=== PATIENT | female | born 1965 | race Caucasian/White ===

== ENCOUNTER 2019-06-05 08:18 | Emergency (ER) | payer SELFPAY ==
[2019-06-05 09:02] LABS: Absolute Lymphocytes (CBC) 1.9 K/uL (0.7-4.9); Basophils % 0.8 % (0-1.3); Hematocrit 44.3 % (36.0-45.0); Lymphocytes % 31.2 % (15.3-44.8); MPV 9.2 fL (7.6-11.3)
[2019-06-05 09:03] LABS: Protime INR 1.02
[2019-06-05] MEDS ORDERED: MECLIZINE HCL 12.5 MG TAB ONE (09:15)
[2019-06-05] MEDS ORDERED: ALBUTEROL 2.5 MG/3 ML NEB SOL ONE (09:15)
[2019-06-05] MEDS ORDERED: NA CHLORIDE 0.9% 1,000 ML ONE (09:16)
[2019-06-05 09:19] LABS: ALT/SGPT 12 U/L (12-78); AST/SGOT 17 U/L (15-37); Albumin 3.8 g/dL (3.4-5.0); Alkaline Phosphatase 75 U/L (45-117); BUN Blood Urea Nitrogen 13 mg/dL (7-18); Bicarbonate 25 mmol/L (21-32); Bilirubin Direct 0.1 mg/dL (0-0.2); Bilirubin Total 0.4 mg/dL (0.2-1.0); Glucose Level 111 mg/dL (74-106); Magnesium 2.2 mg/dL (1.8-2.4); NT PRO-BNP 147 pg/mL (<125); Potassium 3.7 mmol/L (3.5-5.1); Protein, Total 7.9 g/dL (6.4-8.2); Sodium Level 142 mmol/L (136-145); Troponin (Emerg Dept Use Only) < 0.02 ng/mL (0.0-0.045)
--- NOTE | 2019-06-05 10:28 | ER ---
Nurse's Notes [facility] Name: Arianne Reddy Age: 53 yrs Sex: Female : 1965 Arrival Date: 06/05/2019 Time: 08:20 Bed 14 Private MD: Diagnosis: Acute bronchitis, unspecified;Vertigo Presentation: 06/05 08:30 Presenting complaint: Patient states: chest feels heavy, SOB, non productive cough iw since last Friday, also has dizziness X 2 days and feels nauseous when turns head to left, also has rash in groin area. Transition of care: patient was not received from another setting of care. Onset of symptoms was May 29, 2019. Risk Assessment: Do you want to hurt yourself or someone else? Patient reports no desire to harm self or others. Initial Sepsis Screen: Does the patient meet any 2 criteria? No. Patient's initial sepsis screen is negative. Does the patient have a suspected source of infection? No. Patient's initial sepsis screen is negative. Care prior to arrival: None. 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 - Social history:: Smoking status: Patient uses tobacco products, smokes one pack cigarettes per day. - Ebola Screening: : Patient negative for fever greater than or equal to 101.5 degrees Fahrenheit, and additional compatible Ebola Virus Disease symptoms Patient denies exposure to infectious person Patient denies travel to an Ebola-affected area in the 21 days before illness onset No symptoms or risks identified at this time. Screenin:58 Abuse screen: Denies threats or abuse. Denies injuries from another. Nutritional ph screening: No deficits noted. Tuberculosis screening: No symptoms or risk factors identified. Fall Risk None identified. Assessment: 08:56 General: Appears in no apparent distress. uncomfortable, well groomed, Behavior is ph calm, cooperative, appropriate for age, Denies fever. Pain: Complains of pain in chest. Neuro: Level of Consciousness is awake, alert, obeys commands, Oriented to person, place, time, situation, Reports dizziness. Cardiovascular: Reports chest pain, fatigue, lightheadedness, Capillary refill < 3 seconds in bilateral fingers Patient's skin is warm and dry. Rhythm is regular. Respiratory: Reports cough that is non-productive, pain with cough pain with movement pain with respiration Airway is patent Respiratory effort is even, unlabored, Respiratory pattern is regular, symmetrical, Breath sounds are coarse bilaterally. GI: No signs and/or symptoms were reported involving the gastrointestinal system. :. Derm: Skin is healthy with good turgor, Skin is pink, warm \T\ dry. Rash noted that is itchy, red, on right femoral area, left femoral area and suprapubic area. Musculoskeletal: Circulation, motion, and sensation intact. Range of motion: intact in all extremities. 10:07 Reassessment: Patient appears in no apparent distress at this time. Patient and/or ph family updated on plan of care and expected duration. Pain level reassessed. Patient is alert, oriented x 3, equal unlabored respirations, skin warm/dry/pink. Pt resting quietly, awaiting CXR results, VSS. Vital Signs: 08:33 BP 128 / 88; Pulse 90; Resp 20 S; Temp 98.0(TE); Pulse Ox 98% on R/A; Weight 81.65 kg; iw Height 5 ft. 4 in. (162.56 cm); Pain 8/10; 08:59 BP 153 / 67; Pulse 87; Resp 20; Pulse Ox 98% on R/A; ph 10:07 BP 114 / 81; Pulse 88; Resp 18; Pulse Ox 99% on R/A; ph 08:33 Body Mass Index 30.90 (81.65 kg, 162.56 cm) iw ED Course: 08:20 Patient arrived in ED. mr 08:28 Andressa Jalloh, RN is Primary Nurse. ph 08:32 Triage completed. iw 08:33 Arm band placed on. iw 08:39 Fatmata Muller FNP-C is PHCP. snw 08:39 Teofilo Torres MD is Attending Physician. snw 08:50 EKG done, by ED staff, reviewed by Teofilo Torres MD. kj1 08:55 Initial lab(s) drawn, by me, sent to lab. Inserted saline lock: 22 gauge in right kj1 antecubital area, using aseptic technique. 08:59 Patient has correct armband on for positive identification. Placed in gown. Bed in low ph position. Call light in reach. Side rails up X 1. surveillance system monitor on. Pulse ox on. NIBP on. Door closed. Noise minimized. Warm blanket given. 09:25 XRAY Chest (1 view) In Process Unspecified. EDMS Administered Medications: 09:25 Drug: Meclizine 50 mg Route: PO; ph 10:08 Follow up: Response: No adverse reaction ph 09:26 Drug: Albuterol 2.5 mg Route: Inhalation; ph 09:26 Drug: NS 0.9% 1000 ml Route: IV; Rate: 1 bolus; Site: right antecubital; ph 11:06 Follow up: IV Status: Completed infusion; IV Intake: 1000ml em 09:27 Drug: Albuterol 2.5 mg Route: Inhalation; ph 10:08 Follow up: Response: No adverse reaction ph 09:27 Drug: Albuterol 2.5 mg Route: Inhalation; ph 11:02 Drug: Phenergan 6.25 mg Route: IVP; Site: right antecubital; iw 11:06 Drug: predniSONE 40 mg Route: PO; em 11:06 Drug: Pepcid 20 mg Route: PO; em Intake: 11:06 IV: 1000ml; Total: 1000ml. em Outcome: 10:28 Discharge ordered by MD. salazar 11:36 Patient left the ED. ph Signatures: Dispatcher [employer] EDMS Fatmata Muller, CLINIC OFFICE MANAGER-C CLINIC OFFICE MANAGER-Csnsilvino Lorelei Ward, Mickey, TICK ERADICATOR TICK ERADICATOR em Anai Boyle, PAZ RN iw Andressa Jalloh RN RN [facility], Katya kj1 Corrections: (The following items were deleted from the chart) 08:44 08:33 BP 128 / 88; Pulse 90bpm; Resp 20bpm; Spontaneous; Pulse Ox 98% RA; 81.65 kg; iw Height 5 ft. 4 in.; BMI: 30.9; Pain 8/10; iw
--- NOTE | 2019-06-05 10:28 | EDPHYS ---
Physician Documentation [facility] Name: Arianne Reddy Age: 53 yrs Sex: Female : 1965 Arrival Date: 06/05/2019 Time: 08:20 Bed 14 Private MD: ED Physician Teofilo Torres HPI: 06/05 09:03 This 53 yrs old Female presents to ER via Ambulatory with complaints of snw Shortness Of Breath. 09:03 The patient has shortness of breath at rest. Onset: The symptoms/episode began/occurred snw gradually, 1 week(s) ago, and became persistent. Duration: The symptoms are continuous. The patient's shortness of breath is aggravated by coughing, exertion. Associated signs and symptoms: Pertinent positives: non-productive cough, dizziness, nausea. Severity of symptoms: At their worst the symptoms were moderate severe in the emergency department the symptoms are unchanged. The patient has not experienced similar symptoms in the past. The patient has not recently seen a physician. no meds, allergic to tylox. 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 - Social history:: Smoking status: Patient uses tobacco products, smokes one pack cigarettes per day. - Ebola Screening: : Patient negative for fever greater than or equal to 101.5 degrees Fahrenheit, and additional compatible Ebola Virus Disease symptoms Patient denies exposure to infectious person Patient denies travel to an Ebola-affected area in the 21 days before illness onset No symptoms or risks identified at this time. ROS: 08:59 Constitutional: Negative for fever, chills, and weight loss, Eyes: Negative for injury, snw pain, redness, and discharge, ENT: Negative for injury, pain, and discharge, Neck: Negative for injury, pain, and swelling, Cardiovascular: Negative for chest pain, palpitations, and edema. 08:59 Abdomen/GI: Negative for abdominal pain, nausea, vomiting, diarrhea, and constipation, Back: Negative for injury and pain, : Negative for injury, bleeding, discharge, and swelling, MS/Extremity: Negative for injury and deformity, Skin: Negative for injury and discoloration, + rash to groin Neuro: Negative for headache, weakness, numbness, tingling, and seizure, + vertigo type symptoms wth position change 08:59 Respiratory: Positive for cough, shortness of breath, at rest. wheezing, expiratory. Exam: 08:55 Head/Face: Normocephalic, atraumatic. Eyes: Pupils equal round and reactive to light, snw extra-ocular motions intact. Lids and lashes normal. Conjunctiva and sclera are non-icteric and not injected. Cornea within normal limits. Periorbital areas with no swelling, redness, or edema. 08:55 Neck: Trachea midline, no thyromegaly or masses palpated, and no cervical lymphadenopathy. Supple, full range of motion without nuchal rigidity, or vertebral point tenderness. No Meningismus. Chest/axilla: Normal chest wall appearance and motion. Nontender with no deformity. No lesions are appreciated. Cardiovascular: Regular rate and rhythm with a normal S1 and S2. No gallops, murmurs, or rubs. Normal PMI, no JVD. No pulse deficits. 08:55 Abdomen/GI: Soft, non-tender, with normal bowel sounds. No distension or tympany. No guarding or rebound. No evidence of tenderness throughout. Back: No spinal tenderness. No costovertebral tenderness. Full range of motion. MS/ Extremity: Pulses equal, no cyanosis. Neurovascular intact. Full, normal range of motion. Neuro: Awake and alert, GCS 15, oriented to person, place, time, and situation. Cranial nerves II-XII grossly intact. Motor strength 5/5 in all extremities. Sensory grossly intact. Cerebellar exam normal. Normal gait. Psych: Awake, alert, with orientation to person, place and time. Behavior, mood, and affect are within normal limits. 08:55 Constitutional: The patient appears alert, awake. 08:55 ENT: TM's: are normal, Nose: is normal, Mouth: is normal, Dental exam: missing teeth, Voice: is normal. 08:55 Respiratory: the patient does not display signs of respiratory distress, Respirations: accessory muscle usage, shallow respirations, Breath sounds: wheezing: that is moderate, that is severe, is heard diffusely. 08:55 Skin: Appearance: Color: normal in color, rash a moderate rash is noted, rash can be described as macular, on the pelvis. Vital Signs: 08:33 BP 128 / 88; Pulse 90; Resp 20 S; Temp 98.0(TE); Pulse Ox 98% on R/A; Weight 81.65 kg; iw Height 5 ft. 4 in. (162.56 cm); Pain 8/10; 08:59 BP 153 / 67; Pulse 87; Resp 20; Pulse Ox 98% on R/A; ph 10:07 BP 114 / 81; Pulse 88; Resp 18; Pulse Ox 99% on R/A; ph 08:33 Body Mass Index 30.90 (81.65 kg, 162.56 cm) iw MDM: 08:49 Patient medically screened. snw 10:30 Data reviewed: vital signs, nurses notes. Data interpreted: Pulse oximetry: on room air snw is 99 %. Interpretation: normal. Counseling: I had a detailed discussion with the patient and/or guardian regarding: the historical points, exam findings, and any diagnostic results supporting the discharge/admit diagnosis, lab results, radiology results, the need for outpatient follow up, to return to the emergency department if symptoms worsen or persist or if there are any questions or concerns that arise at home, smoking cessation. Special discussion: Based on the history and exam findings, there is no indication for further emergent testing or inpatient evaluation. I discussed with the patient/guardian the need to see the primary care provider for further evaluation of the symptoms. 06/05 08:40 Order name: Basic Metabolic Panel; Complete Time: 09:23 snw 06/05 08:40 Order name: CBC with Diff; Complete Time: 09:07 snw 06/05 08:40 Order name: LFT's; Complete Time: 09:23 snw 06/05 08:40 Order name: Magnesium; Complete Time: 09:23 snw 06/05 08:40 Order name: NT PRO-BNP; Complete Time: 09:23 snw 06/05 08:40 Order name: PT-INR; Complete Time: 09:08 snw 06/05 08:40 Order name: Troponin (emerg Dept Use Only); Complete Time: 09:23 snw 06/05 08:40 Order name: XRAY Chest (1 view); Complete Time: 10:55 snw 06/05 08:40 Order name: EKG; Complete Time: 08:41 snw 06/05 08:40 Order name: Cardiac monitoring; Complete Time: 08:55 snw 06/05 08:40 Order name: EKG - Nurse/Tech; Complete Time: 08:44 snw 06/05 08:40 Order name: IV Saline Lock; Complete Time: 08:56 snw 06/05 08:40 Order name: Labs collected and sent; Complete Time: 08:56 snw 06/05 08:40 Order name: O2 Per Protocol; Complete Time: 08:56 snw 06/05 08:40 Order name: O2 Sat Monitoring; Complete Time: 08:56 snw Administered Medications: 09:25 Drug: Meclizine 50 mg Route: PO; ph 10:08 Follow up: Response: No adverse reaction ph 09:26 Drug: Albuterol 2.5 mg Route: Inhalation; ph 09:26 Drug: NS 0.9% 1000 ml Route: IV; Rate: 1 bolus; Site: right antecubital; ph 11:06 Follow up: IV Status: Completed infusion; IV Intake: 1000ml em 09:27 Drug: Albuterol 2.5 mg Route: Inhalation; ph 10:08 Follow up: Response: No adverse reaction ph 09:27 Drug: Albuterol 2.5 mg Route: Inhalation; ph 11:02 Drug: Phenergan 6.25 mg Route: IVP; Site: right antecubital; iw 11:06 Drug: predniSONE 40 mg Route: PO; em 11:06 Drug: Pepcid 20 mg Route: PO; em Disposition: 15:09 Co-signature as Attending Physician, Teofilo Torres MD I agree with the assessment and kdr plan of care. Disposition: 06/05/19 10:28 Discharged to Home. Impression: Acute bronchitis, unspecified, Vertigo. - Condition is Stable. - Discharge Instructions: Acute Bronchitis, Adult, Steps to Quit Smoking, Smoking Hazards, Vertigo, Roberta Maneuver Self-Care, Rehydration, Adult. - Prescriptions for Tessalon Perles 100 mg Oral Capsule - take 1 capsule by ORAL route every 8 hours As needed; 15 capsule. Prednisone 20 mg Oral Tablet - take 2 tablet by ORAL route once daily for 5 days; 10 tablet. Zithromax 500 mg Oral Tablet - take 1 tablet by ORAL route once daily for 5 days; 5 tablet. Albuterol Sulfate 90 mcg/actuation - inhale 1-2 puff by INHALATION route every 4-6 hours; 1 Inhaler. promethazine 25 mg Oral Tablet - take 1 tablet by ORAL route every 6 hours As needed; 20 tablet. - Medication Reconciliation Form, Thank You Letter, Antibiotic Education, Prescription Opioid Use form. - Follow up: Private Physician; When: 2 - 3 days; Reason: Recheck today's complaints, Continuance of care, Re-evaluation by your physician. Follow up: Emergency Department; When: As needed; Reason: Worsening of condition. Signatures: Dispatcher [employer] EDMS Teofilo Torres MD MD kdr Therrien, Shelly, BETHEL-C STUDIO RECEPTIONIST-Mickey Melton LVN LVN em Williams, Irene, RN RN iw Andressa Jalloh RN RN ph Corrections: (The following items were deleted from the chart) 11:16 10:28 06/05/2019 10:28 Discharged to Home. Impression: Acute bronchitis, unspecified. snw Condition is Stable. Forms are Medication Reconciliation Form, Thank You Letter, Antibiotic Education, Prescription Opioid Use. Follow up: Private Physician; When: 2 - 3 days; Reason: Recheck today's complaints, Continuance of care, Re-evaluation by your physician. Follow up: Emergency Department; When: As needed; Reason: Worsening of condition. snw 11:36 11:16 06/05/2019 10:28 Discharged to Home. Impression: Acute bronchitis, unspecified; ph Vertigo. Condition is Stable. Discharge Instructions: Acute Bronchitis, Adult, Steps to Quit Smoking, Smoking Hazards, Rehydration, Adult, Roberta Maneuver Self-Care. Prescriptions for Tessalon Perles 100 mg Oral Capsule - take 1 capsule by ORAL route every 8 hours As needed; 15 capsule, Prednisone 20 mg Oral Tablet - take 2 tablet by ORAL route once daily for 5 days; 10 tablet, Zithromax 500 mg Oral Tablet - take 1 tablet by ORAL route once daily for 5 days; 5 tablet. and Forms are Medication Reconciliation Form, Thank You Letter, Antibiotic Education, Prescription Opioid Use. Follow up: Private Physician; When: 2 - 3 days; Reason: Recheck today's complaints, Continuance of care, Re-evaluation by your physician. Follow up: Emergency Department; When: As needed; Reason: Worsening of condition. snw
--- NOTE | 2019-06-05 10:52 | RAD REPORT ---
EXAM DESCRIPTION: RAD - Chest Single View - 06/05/2019 9:24 am CLINICAL HISTORY: Congestion;Cough Chest pain. COMPARISON: No comparisons FINDINGS: Portable technique limits examination quality. The lungs are grossly clear. The heart is normal in size. No displaced fractures. IMPRESSION: No acute intrathoracic process suspected.
[2019-06-05] MEDS ORDERED: predniSONE 20 MG TAB ONE (10:53)
[2019-06-05] MEDS ORDERED: PROMETHAZINE 25 MG/ML VIAL ONE (10:53)
[2019-06-05] MEDS ORDERED: FAMOTIDINE 20 MG TAB ONE (10:54)
[2019-06-05 11:41] VITALS: TEMP 98
[2019-06-05 11:43] VITALS: BP 114/81; O2SAT 99
--- NOTE | 2019-06-06 13:05 | EKG ---
Test Date: 2019-06-05 Test Time: 08:40:02 Clinical Laboratory Technician: EDIE MEASUREMENT RESULTS: Intervals: Rate: 80 ND: 126 QRSD: 80 QT: 424 QTc: 489 [place]: P: 76 ND: 126 QRS: 82 T: 60 INTERPRETIVE STATEMENTS: Normal sinus rhythm Prolonged QT Abnormal ECG Compared to ECG 06/05/2019 08:39:33 Prolonged QT interval now present Atrial premature complex(es) no longer present Aberrant conduction of supraventricular beat(s) no longer present T-wave abnormality no longer present Possible ischemia no longer present Electronically Signed On 06-06-19 13:03:39 CDT by Norman Peters
== END 2019-06-05 11:36 | disposition home or self-care (01) ==
LOC: ER 08:18
DX: J20.9 Acute bronchitis, unspecified (principal); R42 Dizziness and giddiness; F17.210 Nicotine dependence, cigarettes, uncomplicated; Z88.5 Allergy status to narcotic agent
CPT/HCPCS: 36415; 71045; 80048; 80076; 83735; 83880; 84484; 85025; 85610; 93005; 96361; 96374; 99285; J2550; J7030; J7512; J8597

== ENCOUNTER 2021-05-02 14:27 | Emergency (ER) | payer SELFPAY ==
--- NOTE | 2021-05-02 15:39 | RAD REPORT ---
EXAM DESCRIPTION: RAD - Chest Single View - 05/02/2021 3:32 pm CLINICAL HISTORY: syncope COMPARISON: Chest Single View dated 06/05/2019 FINDINGS: Lines: None. Lungs: No evidence of edema or pneumonia. Pleural: No significant pleural effusions or pneumothorax. Cardiac: The heart size is within normal limits. Bones: No acute fractures. Other: IMPRESSION: No acute cardiopulmonary disease.
[2021-05-02 15:53] LABS: Protime INR 0.98
--- NOTE | 2021-05-02 15:55 | RAD REPORT ---
EXAM DESCRIPTION: CT - Head Brain Wo Cont - 05/02/2021 3:49 pm CLINICAL HISTORY: SYNCOPE COMPARISON: Head Brain Wo Cont dated 08/19/2016 TECHNIQUE: All CT scans are performed using dose optimization technique as appropriate and may inclu de automated exposure control or mA/KV adjustment according to patient size. FINDINGS: No intracranial hemorrhage, hydrocephalus or extra-axial fluid collection.No areas of brai n edema or evidence of midline shift. The paranasal sinuses and mastoids are clear. The calvarium is intact. IMPRESSION: No acute intracranial abnormality.
[2021-05-02 15:58] LABS: Basophils % 0.6 % (0-1.3); Hematocrit 40.9 % (36.0-45.0); Lymphocytes % 26.4 % (15.3-44.8); MPV 9.3 fL (7.6-11.3); RBC Red Blood Cell Count 4.74 M/uL (3.86-4.86)
[2021-05-02 16:08] LABS: ALT/SGPT 11 U/L (12-78); AST/SGOT 15 U/L (15-37); Albumin 3.7 g/dL (3.4-5.0); Alkaline Phosphatase 98 U/L (45-117); BUN Blood Urea Nitrogen 18 mg/dL (7-18); Bicarbonate 28 mmol/L (21-32); Bilirubin Direct < 0.1 mg/dL (0-0.2); Bilirubin Total 0.3 mg/dL (0.2-1.0); Glucose Level 111 mg/dL (74-106); Magnesium 2.1 mg/dL (1.8-2.4); NT PRO-BNP 207 pg/mL (<125); Potassium 3.6 mmol/L (3.5-5.1); Protein, Total 7.6 g/dL (6.4-8.2); Sodium Level 142 mmol/L (136-145); Troponin (Emerg Dept Use Only) < 0.02 ng/mL (0.0-0.045)
[2021-05-02] MEDS ORDERED: NA CHLORIDE 0.9% 1,000 ML ONE (16:35)
--- NOTE | 2021-05-02 17:50 | ER ---
Nurse's Notes [facility] Name: Arianne Reddy Age: 55 yrs Sex: Female : 1965 Arrival Date: 05/02/2021 Time: 14:28 Bed 27 Private MD: Diagnosis: Syncope;Dehydration Presentation: 05/02 14:45 Chief complaint: Patient states: i did a graveyard at work last night. i went home. tw2 then today i got up to go to the bathroom and the other day like 3 days ago. my vision gets blurry and i guess i pass out and wake up on the floor. then i sit and lay down and i break out in a sweat. it happened twice the other day. Coronavirus screen: At this time, the client does not indicate any symptoms associated with coronavirus-19. Ebola Screen: Patient denies travel to an Ebola-affected area in the 21 days before illness onset. 14:45 Method Of Arrival: Ambulatory tw2 14:48 Chief complaint: Patient states: i think i might have a stomach bug. but i dont have tw2 any other symptoms except the stomach pain. Coronavirus screen: Initial Sepsis Screen: Does the patient meet any 2 criteria? No. Patient's initial sepsis screen is negative. Does the patient have a suspected source of infection? No. Patient's initial sepsis screen is negative. Risk Assessment: Do you want to hurt yourself or someone else? Patient reports no desire to harm self or others. Onset of symptoms was May 02, 2021. 14:48 Acuity: DEQUAN 3 tw2 Triage Assessment: 14:50 General: Appears in no apparent distress. Behavior is calm, cooperative, appropriate tw2 for age. Pain: Complains of pain in epigastric area. Historical: - Allergies: 14:47 Tylox; tw2 - Home Meds: 14:47 None [Active]; tw2 - PMHx: 14:47 None; tw2 - PSHx: 14:47 partial hysterectomy; tw2 - Immunization history:: Adult Immunizations Client reports having NOT received the Covid vaccine. - Social history:: Smoking status: Patient reports the use of cigarette tobacco products, smokes one pack cigarettes per day. Screenin:55 Abuse screen: Denies threats or abuse. Denies injuries from another. Nutritional aj2 screening: No deficits noted. Tuberculosis screening: No symptoms or risk factors identified. Fall Risk None identified. Fall in past 12 months (25 points). Assessment: 15:55 Reassessment: Patient appears in no apparent distress at this time. Patient is alert, aj2 oriented x 3, equal unlabored respirations, skin warm/dry/pink. Patient denies pain at this time. 15:57 General: Appears. aj2 Vital Signs: 14:47 BP 147 / 98; Pulse 88; Resp 18; Temp 98.6(TE); Pulse Ox 99% on R/A; tw2 14:48 Weight 79.38 kg (R); Height 5 ft. 4 in. (162.56 cm); tw2 15:50 BP 132 / 74 Supine; Pulse 67; aj2 15:51 BP 120 / 80 Sitting; Pulse 80; aj2 15:51 BP 135 / 80 Standing; Pulse 75; aj2 15:51 BP 120 / 80; Pulse 75; Resp 18; Temp 97.7; Pulse Ox 100% ; aj2 14:48 Body Mass Index 30.04 (79.38 kg, 162.56 cm) tw2 ED Course: 14:28 Patient arrived in ED. as 14:47 Arm band placed on. tw2 14:50 Triage completed. tw2 15:03 Nick Rangel PA is PHCP. jr8 15:03 Uzair Mast MD is Attending Physician. jr8 15:09 Ko Johnston is Primary Nurse. aj2 15:32 XRAY Chest (1 view) In Process Unspecified. EDMS 15:34 CBC with Diff Sent. aj2 15:34 Basic Metabolic Panel Sent. aj2 15:34 LFT's Sent. aj2 15:34 Magnesium Sent. aj2 15:34 NT PRO-BNP Sent. aj2 15:34 PT-INR Sent. aj2 15:35 Troponin (emerg Dept Use Only) Sent. aj2 15:49 CT Head Brain wo Cont In Process Unspecified. EDMS 15:51 EKG completed in triage. Results shown to MD. aj2 15:55 No apparent distress. aj2 15:55 Patient has correct armband on for positive identification. aj2 15:55 No provider procedures requiring assistance completed. Inserted saline lock: 20 gauge. aj2 17:49 Norman Peters MD is Referral Physician. jr8 17:49 Amari Lea MD is Referral Physician. jr8 18:30 IV discontinued, intact, bleeding controlled, No redness/swelling at site. ld1 Administered Medications: 16:23 Drug: NS 0.9% 1000 ml Route: IV; Rate: 1000 ml; Site: right antecubital; aj2 Outcome: 17:49 Discharge ordered by . jr8 18:30 Discharged to home ambulatory. ld1 18:30 Condition: stable 18:30 Discharge instructions given to patient, Instructed on discharge instructions, follow up and referral plans. Demonstrated understanding of instructions, follow-up care. 18:30 Patient left the ED. ld1 Signatures: Dispatcher [employer] EDMS Yanira Barrios Josh, PA PA jr8 Shayla Goodman RN RN tw2 Mirella Keating RN RN ld1 Ko Johnston aj2 Corrections: (The following items were deleted from the chart) 14:50 14:45 Chief complaint: Patient states: i did a graveyard at work last night. i went tw2 home. then today i got up to go to the bathroom and the other day like 3 days ago. my vision gets blurry and i guess i pass out and wake up on the floor. then i sit and lay down and i break out in a sweat. it happened twice the other day. tw2
--- NOTE | 2021-05-02 17:50 | EDPHYS ---
Physician Documentation [facility] Name: Arianne Reddy Age: 55 yrs Sex: Female : 1965 Arrival Date: 05/02/2021 Time: 14:28 Bed 27 Private MD: ED Physician Uzair Mast HPI: 05/02 16:03 This 55 yrs old Female presents to ER via Ambulatory with complaints of jr8 Passed Out Prior To Arrival, Doesn't Feel Right. 16:03 This is a 55-year-old female patient that presented to the emergency room with jr8 complaints of syncope. Patient stated that she has had 2 other episodes a few days ago. Today after getting off of a graveyard shift had another episode. Stated that she will get blurred like vision and started feeling generally weak and then passed out. Patient states she wakes up shortly after without any confusion or symptoms. Denies any other preceding symptoms. Patient denies any past medical history and denies taking any current medications. Patient denies any drug use or alcohol use. Does smoke daily.. Historical: - Allergies: 14:47 Tylox; tw2 - Home Meds: 14:47 None [Active]; tw2 - PMHx: 14:47 None; tw2 - PSHx: 14:47 partial hysterectomy; tw2 - Immunization history:: Adult Immunizations Client reports having NOT received the Covid vaccine. - Social history:: Smoking status: Patient reports the use of cigarette tobacco products, smokes one pack cigarettes per day. ROS: 16:03 Eyes: Negative for injury, pain, redness, and discharge, ENT: Negative for injury, jr8 pain, and discharge, Neck: Negative for injury, pain, and swelling, Cardiovascular: Negative for chest pain, palpitations, and edema, Respiratory: Negative for shortness of breath, cough, wheezing, and pleuritic chest pain, Abdomen/GI: Negative for abdominal pain, nausea, vomiting, diarrhea, and constipation, Back: Negative for injury and pain, MS/Extremity: Negative for injury and deformity, Skin: Negative for injury, rash, and discoloration. 16:03 Neuro: Positive for syncope, visual changes. Exam: 16:03 Constitutional: This is a well developed, well nourished patient who is awake, alert, jr8 and in no acute distress. Head/Face: Normocephalic, atraumatic. Eyes: Pupils equal round and reactive to light, extra-ocular motions intact. Lids and lashes normal. Conjunctiva and sclera are non-icteric and not injected. Cornea within normal limits. Periorbital areas with no swelling, redness, or edema. ENT: Nares patent. No nasal discharge, no septal abnormalities noted. Tympanic membranes are normal and external auditory canals are clear. Oropharynx with no redness, swelling, or masses, exudates, or evidence of obstruction, uvula midline. Mucous membranes moist. Neck: Trachea midline, no thyromegaly or masses palpated, and no cervical lymphadenopathy. Supple, full range of motion without nuchal rigidity, or vertebral point tenderness. No Meningismus. Chest/axilla: Normal chest wall appearance and motion. Nontender with no deformity. No lesions are appreciated. Cardiovascular: Regular rate and rhythm with a normal S1 and S2. No gallops, murmurs, or rubs. Normal PMI, no JVD. No pulse deficits. Respiratory: Lungs have equal breath sounds bilaterally, clear to auscultation and percussion. No rales, rhonchi or wheezes noted. No increased work of breathing, no retractions or nasal flaring. Abdomen/GI: Soft, non-tender, with normal bowel sounds. No distension or tympany. No guarding or rebound. No evidence of tenderness throughout. Back: No spinal tenderness. No costovertebral tenderness. Full range of motion. Skin: Warm, dry with normal turgor. Normal color with no rashes, no lesions, and no evidence of cellulitis. MS/ Extremity: Pulses equal, no cyanosis. Neurovascular intact. Full, normal range of motion. Neuro: Awake and alert, GCS 15, oriented to person, place, time, and situation. Cranial nerves II-XII grossly intact. Motor strength 5/5 in all extremities. Sensory grossly intact. Cerebellar exam normal. 18:05 ECG was reviewed by the Attending Physician. jr8 Vital Signs: 14:47 BP 147 / 98; Pulse 88; Resp 18; Temp 98.6(TE); Pulse Ox 99% on R/A; tw2 14:48 Weight 79.38 kg (R); Height 5 ft. 4 in. (162.56 cm); tw2 15:50 BP 132 / 74 Supine; Pulse 67; aj2 15:51 BP 120 / 80 Sitting; Pulse 80; aj2 15:51 BP 135 / 80 Standing; Pulse 75; aj2 15:51 BP 120 / 80; Pulse 75; Resp 18; Temp 97.7; Pulse Ox 100% ; aj2 14:48 Body Mass Index 30.04 (79.38 kg, 162.56 cm) tw2 MDM: 15:03 Patient medically screened. [facility] 17:48 Data reviewed: vital signs, nurses notes, lab test result(s), EKG, radiologic studies, jr8 CT scan, plain films. Data interpreted: Pulse oximetry: on room air is 100 %. Interpretation: normal. 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 ED course: Patient had mild orthostatic changes and was given fluids. Otherwise has been hemodynamically stable. No worsening of symptoms and feels that everything is resolved at this time. No other acute findings on blood work or imaging at this time. Discussed with patient that she did have a prolonged QT but was not over 500. Mild concern that that may be a potential cause and needs to be further ruled out with cardiology but overall unlikely. Recommended follow-up with cardiology and neurology. If it were to happen again to come back for further evaluation. Patient with plan at this time.. 05/02 15:05 Order name: Basic Metabolic Panel; Complete Time: 16:10 05/02 15:05 Order name: CBC with Diff; Complete Time: 16:02 05/02 15:05 Order name: LFT's; Complete Time: 16:10 05/02 15:05 Order name: Magnesium; Complete Time: 16:10 05/02 15:05 Order name: NT PRO-BNP; Complete Time: 16:10 05/02 15:05 Order name: PT-INR; Complete Time: 16:02 05/02 15:05 Order name: Troponin (emerg Dept Use Only); Complete Time: 16:10 05/02 15:05 Order name: XRAY Chest (1 view); Complete Time: 15:42 05/02 15:05 Order name: EKG; Complete Time: 15:05 05/02 15:05 Order name: Cardiac monitoring; Complete Time: 15:34 05/02 15:05 Order name: EKG - Nurse/Tech; Complete Time: 15:34 05/02 15:05 Order name: IV Saline Lock; Complete Time: 15:34 05/02 15:25 Order name: CT Head Brain wo Cont; Complete Time: 16:02 05/02 15:05 Order name: Labs collected and sent; Complete Time: 15:35 05/02 15:05 Order name: O2 Per Protocol; Complete Time: 15:34 05/02 15:05 Order name: O2 Sat Monitoring; Complete Time: 16:07 05/02 15:05 Order name: Orthostatics; Complete Time: 16:07 EC:05 Rate is 73 beats/min. Rhythm is regular, Sinus Rhythm. QRS [place] is Normal. AK interval jr8 is normal. QRS interval is normal. QT interval is prolonged at 495 msec. No Q waves. T waves are Normal. No ST changes noted. Clinical impression: No evidence of ischemia. Interpreted by me. Reviewed by me. Administered Medications: 16:23 Drug: NS 0.9% 1000 ml Route: IV; Rate: 1000 ml; Site: right antecubital; aj2 Disposition: 05/03 07:05 Co-signature as Attending Physician, Uzair Mast MD I agree with the assessment and sp3 plan of care. Disposition Summary: 05/02/21 17:49 Discharge Ordered Location: Home jr8 Problem: new jr8 Symptoms: are resolved jr8 Condition: Stable jr8 Diagnosis - Syncope jr8 - Dehydration jr8 Followup: jr8 - With: Norman Peters MD - When: 2 - 3 days - Reason: Recheck today's complaints, Continuance of care, Re-evaluation by your physician Followup: jr8 - With: Amari Lea MD - When: 2 - 3 days - Reason: Recheck today's complaints, Continuance of care, Re-evaluation by your physician Discharge Instructions: - Discharge Summary Sheet jr8 - Dehydration, Adult jr8 - Syncope jr8 Forms: - Medication Reconciliation Form jr8 - Thank You Letter jr8 - Antibiotic Education jr8 - Prescription Opioid Use jr8 Signatures: Dispatcher [employer] EDMS Nick Rangel PA PA jr8 Shayla Goodman RN RN tw2 Uzair Mast MD MD sp3 Ko Johnston aj2 Corrections: (The following items were deleted from the chart) 05/02 18:06 17:48 ED course: Patient had mild orthostatic changes and was given fluids. Otherwise jr8 has been hemodynamically stable. No worsening of symptoms and feels that everything is resolved at this time. No other acute findings on blood work or imaging at this time. Recommended follow-up with cardiology and neurology. If it were to happen again to come back for further evaluation. Patient with plan at this time.. jr8
[2021-05-02 18:41] VITALS: BP 120/80; TEMP 97.7; O2SAT 100
== END 2021-05-02 18:30 | disposition home or self-care (01) ==
LOC: ER 14:27
DX: R55 Syncope and collapse (principal); E86.0 Dehydration; F17.210 Nicotine dependence, cigarettes, uncomplicated
CPT/HCPCS: 36415; 70450; 71045; 80048; 80076; 83735; 83880; 84484; 85025; 85610; 93005; 99284; J7030

== ENCOUNTER 2023-04-05 20:36 | Emergency (ER) | payer OTHER, SELFPAY ==
--- OUTSIDE RECORDS SUMMARY | 2023-04-05 20:39 | XMS REPORT | Continuity of Care Document ---
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 Allergies, Adverse Reactions, Alerts Allergy Allergy Status Severity Reaction(s) Onset Inactive Treating Comm ents Source Name Type Date Date Clinician Tylox Propensi Active Nausea and Pat rodrigues ty to Vomiting 08 Seyanni adverse 00:00: - reaction 00 Externa s l Social History Social Habit Start Date Stop Date Quantity Comments Source Gender identity Tamela liao - External Sexual orientation Tamela Talamantes - External History of tobacco Cigarette Smoker Tamela Talamantes use - External Alcohol intake 2023-02-27 2023-02-27 Lifetime Tamela john 00:00:00 00:00:00 non-drinker - External (finding) History of Social 2023-01-30 2023-01-30 Tamela Talamantes function 00:00:00 00:00:00 - External Sex Ass[birth year] At [birth year] Tamela liao 00:00:00 00:00:00 - External Smoking Status Start Date Stop Date Source Ex-smoker 2023-01-30 00:00:00 2023-01-30 00:00:00 Tamela medel - External Medications Ordered Filled Start Stop Current Ordering Indication Dosage Frequency Signature Comments Components Source Medication Medication Date Date Medication? Clinician (SIG) Name Name Lisinopril Yes [id number] 20mg Take 1 K elsey 20 MG oral 7-06 tablet (20 Sey bold Tablet 00:00: mg total) - 00 by mouth Externa daily l Celecoxib Yes [id number] 200mg Take 1 K elsey (CeleBREX) 7-06 capsule Seybol d 200 MG oral 00:00: (200 mg - Capsule 00 total) by Externa mouth 2 l times daily Acetaminoph Yes [id number] 1{tbl} Q4H Take 1 Tamela en-Codeine 7-06 tablet by Seyb old 300-30 MG 00:00: mouth - oral Tablet 00 every 4 Exter na hours as l needed for pain Gabapentin Yes [id number] Take 1 Tamela 300 MG oral 6-30 capsule Seybo ld Capsule 00:00: (300 mg - 00 total) by Externa mouth l after breakfast AND 2 capsules (600 mg total) after lunch AND 2 capsules (600 mg total) at bedtime. Baclofen 10 Yes [id number] 10mg Take 1 Tamela MG oral 6-30 tablet (10 Seybol d Tablet 00:00: mg total) - 00 by mouth Externa at bedtime l as needed No driving. No alcohol. No operating machinery. Gabapentin Yes [id number] Take 1 Tamela 300 MG oral 6-30 capsule Seybo ld Capsule 00:00: (300 mg - 00 total) by Externa mouth l after breakfast AND 2 capsules (600 mg total) after lunch AND 2 capsules (600 mg total) at bedtime. Baclofen 10 Yes [id number] 10mg Take 1 Tamela MG oral 6-30 tablet (10 Seybol d Tablet 00:00: mg total) - 00 by mouth Externa at bedtime l as needed No driving. No alcohol. No operating machinery. Gabapentin Yes [id number] 100mg Take 1 Tamela 100 MG oral 6-27 capsule Seybo ld Capsule 00:00: (100 mg - 00 total) by Externa mouth 3 l times daily Gabapentin Yes [id number] 100mg Take 1 Tamela 100 MG oral 6-27 capsule Seybo ld Capsule 00:00: (100 mg - 00 total) by Externa mouth 3 l times daily Gabapentin 3-0 Yes [id number] 100mg Take 1 Tamela 100 MG oral 6-08 capsule Seybo ld Capsule 00:00: (100 mg - 00 total) by Externa mouth 3 l times daily methylPREDN 3-0 Yes [id number] 1{michel} Take 1 michel Tamela ISolone 4 6-08 by mouth Seybol d MG oral 00:00: See Admin - Tablet 00 Instructio Externa Therapy ns Use as l Pack directed Lisinopril 3-0 Yes [id number] 10mg Take 1 K elsey 10 MG oral 6-08 tablet (10 Sey bold Tablet 00:00: mg total) - 00 by mouth Externa daily l methylPREDN 3-0 Yes [id number] 1{michel} Take 1 michel Tamela ISolone 4 6-08 by mouth Seybol d MG oral 00:00: See Admin - Tablet 00 Instructio Externa Therapy ns Use as l Pack directed Lisinopril 3-0 Yes [id number] 10mg Take 1 K elsey 10 MG oral 6-08 tablet (10 Sey bold Tablet 00:00: mg total) - 00 by mouth Externa daily l methylPREDN 2023-0 2023- No [id number] 1{michel} Take 1 michel Tamela ISolone 4 6-08 07-06 by mouth Seybo ld MG oral 00:00: 00:00 See Admin - Tablet 00 :00 Instructio Externa Therapy ns Use as l Pack directed Lisinopril 2023-0 2023- No [id number] 10mg Take 1 Tamela 10 MG oral 6-08 07-06 tablet (10 Se ybold Tablet 00:00: 00:00 mg total) - 00 :00 by mouth Externa daily l Vital Signs Vital Name Observation Time Observation Value Comments Source Systolic blood 2023-02-27 19:41:00 166 mm[Hg] Tamela Seybold - pressure External Diastolic blood 2023-02-27 19:41:00 84 mm[Hg] Jared y Seybold - pressure External Heart rate 2023-02-27 19:41:00 90 /min Tamela S eybold - External Body temperature 2023-02-27 19:41:00 35.56 Treva Pat ey Seybold - External Respiratory rate 2023-02-27 19:41:00 15 /min Pat ey Seybold - External Body height 2023-02-27 19:41:00 162.6 cm Tamela S eybold - External Body weight 2023-02-27 19:41:00 85.73 kg Tamela S eybold - External BMI 2023-02-27 19:41:00 32.44 kg/m2 Tamela S eybold - External Body height 2023-02-21 13:36:00 162.6 cm Tamela S eybold - External Body weight 2023-02-21 13:36:00 82.101 kg Tamela S eybold - External BMI 2023-02-21 13:36:00 31.07 kg/m2 Tamela S eybold - External Systolic blood 2023-01-30 13:43:00 190 mm[Hg] Tamela Seybold - pressure External Diastolic blood 2023-01-30 13:43:00 106 mm[Hg] Russse y Seybold - pressure External Heart rate 2023-01-30 13:43:00 102 /min Tamela S eybold - External Body temperature 2023-01-30 13:43:00 36.67 Treva Pat ey Seybold - External Respiratory rate 2023-01-30 13:43:00 15 /min Pat ey Seybold - External Body height 2023-01-30 13:43:00 162.6 cm Tamela Robertson eybold - External Body weight 2023-01-30 13:43:00 84.369 kg Tamela Robertson eybold - External BMI 2023-01-30 13:43:00 31.93 kg/m2 Tamela Robertson eybold - External Procedures This patient has no known procedures. Encounters Start End Encounter Admission Attending Care Care Encounter Source Date/Time Date/Time Type Type Clinicians Facility Department ID 2023-04-04 2023-04-04 Outpatient CODY KHAN [id number] Tamela 11:30:00 11:30:00 Seybol d 2023-03-27 2023-03-27 Outpatient TAMELA ELIZABETH [id number] Tamela 13:00:00 13:00:00 SHELIA Mckenzieol shaneka 2023-03-16 2023-03-16 Outpatient TAMELA ELIZABETH [id number] Tamela 00:00:00 00:00:00 SHELIA Seybol d 2023-03-05 2023-03-05 Outpatient TAMELA ELIZABETH [id number] Tamela 00:00:00 00:00:00 SHELIA Seybol d 2023-02-27 2023-02-27 Outpatient TAMELA ELIZABETH [id number] Tamela 15:00:00 15:00:00 SHELIA Seybol d 2023-02-27 2023-02-27 Outpatient TAMELA RAPP [id number] Tamela 00:00:00 00:00:00 Seybol d 2023-02-21 2023-02-21 Outpatient DARREL KHANE TAMELA RAPP [id number] Tamela 08:45:00 08:45:00 Seybol d 2023-02-21 2023-02-21 Outpatient TAMELA RAPP [id number] Tamela 00:00:00 00:00:00 Seybol d 2023-02-17 2023-02-17 Outpatient TAMELA VIVAR [id number] Tamela 00:00:00 00:00:00 KRISHAN Seybol d 2023-02-17 2023-02-17 Outpatient TAMELA ELIZABETH [id number] Tamela 00:00:00 00:00:00 SHELIA Seybol d 2023-02-05 2023-02-05 Outpatient TAMELA ELIZABETH [id number] Tamela 00:00:00 00:00:00 SHELIA Seybol d 2023-01-30 2023-01-30 Outpatient TAMELA ELIZABETH [id number] Tamela 09:00:00 09:00:00 SHELIA Seybol d Results This patient has no known results.
--- NOTE | 2023-04-05 21:16 | RAD REPORT ---
EXAM DESCRIPTION: CT - Head Brain Wo Cont - 04/05/2023 8:59 pm CLINICAL HISTORY: STROKE ALERT COMPARISON: Head Brain Wo Cont dated 05/02/2021; Head Brain Wo Cont dated 08/19/2016 TECHNIQUE: Noncontrast head CT images were obtained without IV contrast. Multiplanar reformats were generated and reviewed. All CT scans are performed using dose optimization technique as appropriate and may include automated exposure control or mA/KV adjustment according to patient size. FINDINGS: No intracranial hemorrhage, mass, or edema. Midline structures are unremarkable. Normal ventricular caliber for age. Estrella-white matter differentiation is preserved, without evidence of acute infarct. No abnormal extra- axial fluid collections. Mastoid air cells patchy opacification. Visualized portions of the paranasal sinuses are clear. No acute bony findings. IMPRESSION: No evidence of an acute intracranial process. Patchy opacification of the mastoid air cells.
[2023-04-05 21:25] LABS: Hematocrit 37.9 % (36.0-45.0); Lymphocytes % 36.1 % (15.3-44.8); MCV 84.1 fL (80-100); MPV 8.3 fL (7.6-11.3); Platelets 300 thou/uL (152-406); RBC Red Blood Cell Count 4.51 M/uL (3.86-4.86)
[2023-04-05 21:27] LABS: Protime INR 1.06
[2023-04-05 21:38] LABS: Potassium 3.5 mEq/L (3.5-5.1); Troponin High Sensitivity 5.4 pg/mL (<58.9)
--- NOTE | 2023-04-05 22:00 | RAD REPORT ---
EXAM DESCRIPTION: RADChest Single View04/05/2023 9:40 pm CLINICAL HISTORY: CHEST PAIN COMPARISON: Chest Single View dated 05/02/2021; Chest Single View dated 06/05/2019 TECHNIQUE: Portable AP view of the chest. FINDINGS: The lungs are clear. No pneumothorax or effusion. The cardiomediastinal contours are unrem arkable. IMPRESSION: No acute cardiopulmonary process.
--- NOTE | 2023-04-05 22:20 | ER ---
Nurse's Notes [facility] Name: Arianne Reddy Age: 57 yrs Sex: Female : 1965 Arrival Date: 04/05/2023 Time: 20:36 Bed 13 Private MD: Diagnosis: Migraine without aura, not intractable Presentation: 04/05 20:40 Chief complaint: EMS states: Pt has had left sided weakness for a week and called EMS kd3 today because of a 9/10 headache and blurred vision. 1 GM of ofirmev and 4 of Zofran was given in route. Now the headache is 7/10. Pt is newly diagnosed with HTN and has a history of virtigo and sciatica. Ebola Screen: No symptoms or risks identified at this time. 20:40 Method Of Arrival: EMS: [facility] kd3 20:50 Initial Sepsis Screen: Does the patient meet any 2 criteria? No. Patient's initial kd3 sepsis screen is negative. Does the patient have a suspected source of infection? No. Patient's initial sepsis screen is negative. Risk Assessment: Do you want to hurt yourself or someone else? Patient reports no desire to harm self or others. Onset of symptoms was April 05, 2023. 20:50 Acuity: DEQUAN 3 kd3 20:56 Coronavirus screen: Vaccine status: Patient reports being unvaccinated. kd3 Triage Assessment: 20:56 General: Appears uncomfortable, Behavior is calm, cooperative. Pain: Complains of pain kd3 in headache. Neuro: Level of Consciousness is awake, alert, obeys commands, Oriented to person, place, time, situation. Cardiovascular: Patient's skin is warm and dry. Respiratory: Airway is patent Trachea midline Respiratory effort is even, unlabored, Respiratory pattern is regular, symmetrical. Historical: - Allergies: 20:50 Tylox; kd3 - PSHx: 20:50 partial hysterectomy; kd3 - Immunization history:: Adult Immunizations up to date. - Social history:: Smoking status: Patient/guardian denies using tobacco, the patient reports quitting approximately 1 years ago. Screenin:57 [facility] ED Fall Risk Assessment (Adult) History of falling in the last 3 months, kd3 including since admission No falls in past 3 months (0 pts) Confusion or Disorientation No (0 pts) Intoxicated or Sedated No (0 pts) Impaired Gait No (0 pts) Mobility Assist Device Used No (0 pt) Altered Elimination No (0 pt) Score/Fall Risk Level 0 - 2 = Low Risk Maintained a safe environment. Abuse screen: Denies threats or abuse. Denies injuries from another. Nutritional screening: No deficits noted. Tuberculosis screening: No symptoms or risk factors identified. 21:19 Kate Swallow Protocol Exclusion Criteria: Exclusion Criteria Result: Proceed Brief kd3 Cognitive Screen What is your name? Normal, Where are you right now? Normal, What year is it? Normal. Oral Mechanism Examination Oral Mechanism Result: Normal. 3 oz Water Swallow Challenge: Pt able to drink all water without stopping, coughing, choking or throat clearing: Yes Result: PASS MD Notified: Sandie Billy PA-C. Assessment: 21:01 General: see triage . kd3 22:17 General: Appears in no apparent distress. Behavior is calm, cooperative. Pain: kd3 Complains of pain in headache. Neuro: Level of Consciousness is awake, alert, obeys commands, Oriented to person, place, time, situation. Cardiovascular: Patient's skin is warm and dry. Respiratory: Airway is patent Trachea midline Respiratory effort is even, unlabored, Respiratory pattern is regular, symmetrical. Vital Signs: 20:56 BP 151 / 83; Pulse 68; Resp 16; Temp 97.8(O); Pulse Ox 99% on R/A; kd3 22:02 BP 130 / 75; Pulse 53; Resp 19; Pulse Ox 98% on R/A; kd3 ED Course: 20:40 Patient arrived in ED. kd3 20:42 Jyoti Talbert MD is Attending Physician. sd2 20:43 Sandie Billy PA-C is PHCP. sb4 20:50 Triage completed. kd3 20:50 Arm band placed on right wrist. kd3 20:56 Yuly Dior RN is Primary Nurse. kd3 20:58 Patient has correct armband on for positive identification. Provided Education on: . kd3 21:00 Maintain EMS IV. Dressing intact. Good blood return noted. Site clean \T\ dry. Gauge \T\ kd 3 site: 20 gauge left A/C . 21:01 Head Brain Wo Cont In Process Unspecified. EDMS 21:16 Basic Metabolic Panel Sent. kd3 21:16 CBC with Diff Sent. kd3 21:16 High Sensitivity Troponin Sent. kd3 21:16 Protime (+inr) Sent. kd3 21:16 Ptt, Activated Sent. kd3 21:41 Stroke CXR 1 View In Process Unspecified. EDMS 22:24 No provider procedures requiring assistance completed. IV discontinued, intact, kd3 bleeding controlled, No redness/swelling at site. Pressure dressing applied. Administered Medications: No medications were administered Medication: 20:58 VIS not applicable for this client. kd3 Outcome: 22:20 Discharge ordered by . sb4 22:24 Discharged to home ambulatory. kd3 22:24 Condition: stable 22:24 Discharge instructions given to patient, family, Instructed on discharge instructions, follow up and referral plans. Demonstrated understanding of instructions, follow-up care. 22:32 Patient left the ED. kd3 Signatures: Dispatcher [employer] EDKS Yuly Dior RN RN kd3 Jyoti Talbert MD MD sd2 Sandie Billy, PA-C PA-C sb4
--- NOTE | 2023-04-05 22:20 | EDPHYS ---
Physician Documentation [facility] Name: Arianne Reddy Age: 57 yrs Sex: Female : 1965 Arrival Date: 04/05/2023 Time: 20:36 Bed 13 Private MD: ED Physician Jyoti Talbert HPI: 04/06 02:28 This 57 yrs old Female presents to ER via EMS with complaints of Weakness, Headache. sb4 02:28 Onset: The symptoms/episode began/occurred yesterday. patient states she has a sb4 headache, mild blurred vision, nausea and decreased sensation in her left foot. she states the symptoms began about 24 hours ago. she denies any aggravating or alleviating factors. no chest pain, shortness of breath, weakness. Historical: - Allergies: 04/05 20:50 Tylox; kd3 - PSHx: 20:50 partial hysterectomy; kd3 - Immunization history:: Adult Immunizations up to date. - Social history:: Smoking status: Patient/guardian denies using tobacco, the patient reports quitting approximately 1 years ago. ROS: 04/06 02:28 Constitutional: Negative for fever, chills, and weight loss, Eyes: Negative for injury, sb4 pain, redness, and discharge, ENT: Negative for injury, pain, and discharge, Cardiovascular: Negative for chest pain, palpitations, and edema, Respiratory: Negative for shortness of breath, cough, wheezing, and pleuritic chest pain, Back: Negative for injury and pain, MS/Extremity: Negative for injury and deformity, Skin: Negative for injury, rash, and discoloration. Abdomen/GI: Positive for nausea, Negative for abdominal pain, vomiting, diarrhea. Neuro: Positive for headache, visual changes, Negative for altered mental status, dizziness, gait disturbance. All other systems are negative. Exam: 02:28 Constitutional: This is a well developed, well nourished patient who is awake, alert, sb4 and in no acute distress. Head/Face: Normocephalic, atraumatic. Eyes: Extra-ocular motions intact. Periorbital areas with no swelling, redness, or edema. ENT: Mucous membranes moist. Cardiovascular: Regular rate and rhythm with a normal S1 and S2. Respiratory: Lungs have equal breath sounds bilaterally, clear to auscultation and percussion. No rales, rhonchi or wheezes noted. No increased work of breathing, no retractions or nasal flaring. Abdomen/GI: Soft, non-tender, no distension. Back: No spinal tenderness. No costovertebral tenderness. Full range of motion. Skin: Warm, dry with normal turgor. Normal color with no rashes, no lesions, and no evidence of cellulitis. MS/ Extremity: Pulses equal, no cyanosis. Neurovascular intact. Full, normal range of motion. Neuro: Awake and alert, GCS 15, oriented to person, place, time, and situation. Cranial nerves II-XII grossly intact. Motor strength 5/5 in all extremities. Sensory grossly intact. Cerebellar exam normal. Normal gait. Vital Signs: 04/05 20:56 BP 151 / 83; Pulse 68; Resp 16; Temp 97.8(O); Pulse Ox 99% on R/A; kd3 22:02 BP 130 / 75; Pulse 53; Resp 19; Pulse Ox 98% on R/A; kd3 MDM: 20:42 Patient medically screened. sd2 04/06 02:28 Data reviewed: vital signs, nurses notes, lab test result(s), EKG, radiologic studies, sb4 and as a result, I will discharge patient. Care significantly affected by the following chronic conditions: Hypertension. Counseling: I had a detailed discussion with the patient and/or guardian regarding: the historical points, exam findings, and any diagnostic results supporting the discharge/admit diagnosis, lab results, radiology results, to return to the emergency department if symptoms worsen or persist or if there are any questions or concerns that arise at home. ED course: patient reports feeling much better and is requesting to go home. i discussed her results with her and she will follow up with her PCP. 14:56 Consideration of Admission/Observation Escalation of care including sb4 admission/observation considered. Special discussion: I discussed with the patient/guardian in detail that at this point there is no indication for admission to the hospital. It is understood, however, that if the symptoms persist or worsen the patient needs to return immediately for re-evaluation. 04/05 20:44 Order name: Basic Metabolic Panel; Complete Time: 21:39 sb4 04/05 20:44 Order name: CBC with Diff; Complete Time: 21:32 sb4 04/05 20:44 Order name: High Sensitivity Troponin; Complete Time: 21:39 sb4 04/05 20:44 Order name: Protime (+inr); Complete Time: 21:28 sb4 04/05 20:44 Order name: Ptt, Activated; Complete Time: 21:28 sb4 04/05 21:23 Order name: Glucose, Ancillary Testing; Complete Time: 21:28 EDMS 04/05 20:44 Order name: Stroke CXR 1 View; Complete Time: 22:13 sb4 04/05 20:54 Order name: Head Brain Wo Cont; Complete Time: 21:20 EDMS 04/05 20:44 Order name: EKG; Complete Time: 20:45 sb4 04/05 20:44 Order name: Accucheck; Complete Time: 20:58 sb4 04/05 20:44 Order name: Cardiac monitoring; Complete Time: 20:58 sb4 04/05 20:44 Order name: EKG - Nurse/Tech; Complete Time: 20:58 sb4 04/05 20:44 Order name: IV Saline Lock; Complete Time: 20:58 sb4 04/05 20:44 Order name: Labs collected and sent; Complete Time: 21:15 sb4 04/05 20:44 Order name: O2 Per Protocol; Complete Time: 20:58 sb4 04/05 20:44 Order name: O2 Sat Monitoring; Complete Time: 20:58 sb4 04/05 20:44 Order name: Stroke Swallow Screen; Complete Time: 21:19 sb4 EC/12 20:50 Rate is 68 beats/min. Rhythm is regular, Normal Sinus Rhythm with Occasional PVCs. ID sb4 interval is normal at 140 msec. QRS interval is normal at 86 msec. QT interval is normal at 414 msec. No Q waves. T waves are Normal. No ST changes noted. Clinical impression: Normal ECG. Interpreted by me. Reviewed by me. Administered Medications: No medications were administered Disposition: 23:52 I reviewed the patient's care provided by the Advanced Practice Provider and agree with sd2 the diagnosis and treatment plan. Disposition Summary: 04/05/23 22:20 Discharge Ordered Location: Home sb4 Problem: new sb4 Symptoms: have improved sb4 Condition: Stable sb4 Diagnosis - Migraine without aura, not intractable sb4 Followup: sb4 - With: Private Physician - When: As needed - Reason: Recheck today's complaints, Continuance of care, Re-evaluation by your physician Discharge Instructions: - Discharge Summary Sheet sb4 - Migraine Headache, [id number] sb4 Forms: - Medication Reconciliation Form sb4 - Thank You Letter sb4 - Antibiotic Education sb4 - Prescription Opioid Use sb4 - Patient Portal Instructions sb4 - Leadership Thank You Letter sb4 Signatures: Dispatcher [employer] Yuly Luz RN RN kd3 Jyoti Talbert MD MD sd2 Sandie Billy PA-C [employer] sb4 Corrections: (The following items were deleted from the chart) 20:54 20:45 CT-STROKE BRAIN W/O CONTRAST+CT.[email or web address].BRZ ordered. EDMS EDMS
[2023-04-05 22:37] VITALS: TEMP 97.8
[2023-04-05 22:38] VITALS: BP 130/75; O2SAT 98
--- NOTE | 2023-04-06 15:28 | EKG ---
Test Date: 2023-04-05 Test Time: 20:48:17 Puff Iron Operator: JOYCE MEASUREMENT RESULTS: Intervals: Rate: 68 [place]: 140 QRSD: 86 QT: 414 QTc: 440 [place]: P: 53 [place]: 140 QRS: 62 T: 40 INTERPRETIVE STATEMENTS: Sinus rhythm with premature supraventricular complexes Otherwise normal ECG Compared to ECG 05/02/2021 15:16:20 Atrial premature complex(es) now present Prolonged QT interval no longer present Electronically Signed On 04-06-23 15:27:28 CDT by Willem Jaimes
== END 2023-04-05 22:32 | disposition home or self-care (01) ==
LOC: ER 20:36
DX: G43.009 Migraine without aura, not intractable, without status migrainosus (principal)
CPT/HCPCS: 36415; 70450; 71045; 80048; 82947; 84484; 85025; 85610; 85730; 93005; 99283